=== PATIENT | male | born 1970 | race Two or more races ===

== ENCOUNTER 2019-08-11 15:53 | Emergency (ER) | payer SELFPAY ==
--- NOTE | ~2019-08-11 | CT_ITS ---
EXAMINATION: CT abdomen pelvis wo con DATE: 08/11/2019 16:32 INDICATION: Flank pain TECHNIQUE: Computed tomography (CT) of the abdomen and pelvis was performed without intravenous contr ast. The dose-length product (DLP) was 556.20 mGy-cm. Automated exposure control and iterative recons truction technique were employed. COMPARISON: None FINDINGS: The lung bases are clear. The heart size is normal. The liver, spleen, pancreas, gallbladde r, and adrenal glands are normal. No stones are identified in the ureters or bladder. There is no hyd ronephrosis or hydroureter. There are punctate nonobstructing stones of the kidneys. No pathologicall y enlarged abdominal or pelvic lymph nodes are identified. There is no free intraperitoneal gas or ev idence of bowel obstruction. The appendix is normal. There is a small fat-containing umbilical hernia . There is mild lumbar spondylosis. IMPRESSION: 1. No CT correlate for the patient's symptoms. Reviewed, dictated and finalized at location A.
[2019-08-11 15:51] VITALS: BP 153/90; PULSE 89; RESP 34; TEMP 37.2; O2SAT 97
[2019-08-11] MEDS: FAMOTIDINE 20 MG/2 ML VIAL IV PUSH (16:08)
[2019-08-11] MEDS: ONDANSETRON INJ 4 MG/2 ML VIAL IV PUSH (16:09)
[2019-08-11] MEDS: SODIUM CHLORIDE 0.9% IV 1,000 ML 999 ML IV CONT ×2 (16:09→16:42)
--- NOTE | 2019-08-11 16:09 | ED.ABDPAIN ---
HPI - Abdominal Pain General Chief Complaint: Abdominal Pain <Lexx Che PA-C - Last Filed: 08/11/19 19:18> Stated Complaint: BACK PAIN/FLANK PAIN <Lexx Che PA-C - Last Filed: 08/11/19 19:18> Source: patient <Lexx Che PA-C - Last Filed: 08/11/19 19:18> Mode of arrival: ambulatory <Lexx Che PA-C - Last Filed: 08/11/19 19:18> Limitations: no limitations and language barrier ([employer] was used for translation) <Lexx Che PA-C - Last Filed: 08/11/19 19:18> History of Present Illness HPI narrative: Patient is a 48-year-old male who presents to emergency department for evaluation of acute onset of right flank pain that was sharp in nature radiated from the back to the abdomen. Patient notes that he took Tylenol and has since had improvement. Patient denies any vomiting diarrhea urinary symptoms dyspnea chest pain. Patient notes he has had a dry cough since April. Patient denies other complaints or symptoms and is resting comfortably in the room in no distress. <Lexx Che PA-C - Last Filed: 08/11/19 19:18> Related Data Home Medications: Home Medications Medication Instructions Recorded Confirmed aripiprazole 5 mg PO DAILY 08/11/19 citalopram 40 mg PO DAILY 08/11/19 methylphenidate HCl [Concerta] 36 mg PO QAM 08/11/19 mirtazapine 30 mg PO DAILY 08/11/19 telmisartan 80 mg PO DAILY 08/11/19 <Lexx Che PA-C - Last Filed: 08/11/19 19:18> Allergies/Adverse Reactions: Allergies Allergy/AdvReac Type Severity Reaction Status Date / Time seafood Allergy Swelling Uncoded 08/11/19 16:01 <Lexx Che PA-C - Last Filed: 08/11/19 19:18> Review of Systems Review of Systems: All systems reviewed & are unremarkable except as noted in HPI and below <Lexx Che PA-C - Last Filed: 08/11/19 19:18> [facility] Past Medical History Medical History: Medical History (Updated 08/11/19 @ 19:02 by Lexx Che PA-C) Hypertension <Lexx Che PA-C - Last Filed: 08/11/19 19:18> Social History Social History: Social History (Updated 08/11/19 @ 16:17 by Lexx Che PA-C) Smoking status: Never smoker Gender identity (if verbalized by the patient): Male <Lexx Che PA-C - Last Filed: 08/11/19 19:18> Exam Narrative: Exam Narrative: GENERAL: Well-appearing, well-nourished, and in no acute distress. HEAD: Normocephalic, atraumatic. EYES: PERRLA and EOMI. ENT: Nares clear, no rhinorrhea or epistaxis. Mucous membranes moist. CHEST: Clear to auscultation. No respiratory distress. No wheezes rales or rhonchi HEART: Regular rate and rhythm. No murmur heard. Normal peripheral pulses. ABDOMEN: Soft, nontender, nondistended, normal active bowel sounds. EXTREMITIES: Normal range of motion. No edema. SKIN: Warm, dry, no rash. NEURO: No focal deficits. Alert and oriented x3. PSYCH: Normal mood and affect. <Lexx Che PA-C - Last Filed: 08/11/19 19:18> [employer]/PA Physician Supervision Attestation for Honorio Hallman. We discussed the case, and I had face to face with the patient, as he was going to CT scan. His studies came out fine, and he felt better. He is a local owner operator truck driver, and will follow up with his PCP at his home. <Afsaneh Holley MD - Last Filed: 08/11/19 22:10> Vital Signs Vital signs: Vital Signs Temperature 99.0 F 08/11/19 15:51 Pulse Rate 89 08/11/19 15:51 Respiratory Rate 34 H 08/11/19 15:51 Blood Pressure 153/90 H 08/11/19 15:51 Pulse Oximetry 97 08/11/19 15:51 Temperature 99.0 F 08/11/19 15:51 Pulse Rate 78 08/11/19 19:29 Respiratory Rate 18 08/11/19 19:29 Blood Pressure 132/68 08/11/19 19:29 Pulse Oximetry 99 08/11/19 19:29 <Lexx Che PA-C - Last Filed: 08/11/19 19:18> Vital Signs Temperature 99.0 F 08/11/19 15:51 Pulse Rate 89 08/11/19 15:51 Respiratory Rate 34 H 08/11/19 15:51 Bloo
[2019-08-11 16:23] LABS: Basophils Absolute Auto 0.1 K/mm3 (0.0-0.1); Basophils Percent Auto 0.7 % (0.2-1.2); Eosinophils Absolute Auto 0.1 K/mm3 (0-0.3); Eosinophils Percent Auto 1.5 % (0-4.4); Hematocrit 49.3 % (42.0-52.0); Hemoglobin 15.9 g/dL (14.0-18.0); Immature Granulocyte Absolute 0.05 K/mm3 (0.00-0.031); Immature Granulocyte Percent A 0.5 % (0-0.5); Lymphocytes Absolute Auto 1.76 K/mm3 (0.9-3.2); Lymphocytes Percent Auto 19.2 % (18.3-44.2); Mean Corpuscular HGB Conc 32.3 g/dl (32-36); Mean Corpuscular Hemoglobin 27.9 pg (26-34); Mean Corpuscular Volume 86.5 fl (80-100); Mean Platelet Volume 11.2 fl (7.4-10.4); Monocytes Absolute Auto 0.7 K/mm3 (0.1-0.6); Monocytes Percent Auto 7.1 % (2.6-8.5); Neutrophils Absolute Auto 6.5 K/mm3 (1.3-6.7); Platelet Count Result 252 k/mm3 (150-375); Red Cell Distribution Width 13.1 % (11.5-14.5); White Blood Count 9.2 K/mm3 (4.5-10.0)
--- NOTE | 2019-08-11 16:23 | PC.NURSE ---
pt to ct scan via stretcher
[2019-08-11 16:36] LABS: Potassium 4.2 mmol/L (3.4-5.0)
[2019-08-11] MEDS: MORPHINE SULFATE 2 MG/ML INJ IV PUSH (16:41)
[2019-08-11 16:44] LABS: Alanine Aminotransferase 30 U/L (4-50); Albumin Level 4.6 g/dL (3.5-5.1); Alkaline Phosphatase 77 U/L (38-126); Aspartate Amino Transferase 23 U/L (17-59); Bilirubin,Total 0.6 mg/dL (0.2-1.3); Blood Urea Nitrogen 21 mg/dL (9-20); Calcium 9.6 mg/dL (8.4-10.2); Carbon Dioxide 32 mmol/L (22-30); Chloride 99 mmol/L (98-107); Estimated CRCL calculation 83 ml/min; Estimated Glomerular Filt Rate > 60; Glucose 112 mg/dL (75-110); Lipase 80 U/L (23-300); Sodium 137 mmol/L (137-145)
[2019-08-11 17:31] LABS: D Dimer 0.27 ug/mL (<0.48)
[2019-08-11 17:35] LABS: Lactic Acid Reflex 1.5 mmol/L (0.7-2.1)
[2019-08-11 17:45] VITALS: BP 136/96; PULSE 82; RESP 30; O2SAT 96
--- NOTE | 2019-08-11 17:48 | PC.NURSE ---
2 L NS infused, pt given urinal and attempting to provide u/a
[2019-08-11] MEDS: KETOROLAC 30 MG/ML VIAL (*BKC) IV PUSH (17:49)
[2019-08-11 18:36] LABS: Add Urine Microscopic? NO; Appearance Urine Clear (Clear); Bilirubin Urine Negative (Negative); Blood Urine Negative (Negative); Color Urine Yellow (Yellow); Glucose Urine UA Negative (Negative); Ketones Urine Negative (Negative); Leukocyte Esterase Ur Negative LEU/UL (Negative); Nitrate Urine Negative (Negative); Protein Urine Negative (Negative); Specific Grav Ur 1.014 (1.001-1.035); Urobilinogen Urine Negative mg/dL (<2.0)
[2019-08-11] MEDS: ACETAMINOPHEN 500 MG TABLET 1000 MG PO (19:28)
[2019-08-11 19:29] VITALS: BP 132/68; PULSE 78; RESP 18; O2SAT 99
== END 2019-08-11 19:30 | disposition home or self-care (01) ==
PROVIDERS: Emergency Medicine Emergency Medical Services; Emergency Provider Emergency Medicine
DX: M54.5 Low back pain (principal); I10 Essential (primary) hypertension
CPT/HCPCS: 36415; 74176; 80053; 81003; 83605; 83690; 85025; 85380; 96361; 96374; 96375; 99284; A9270; J1885; J2270; J2405; J7030